=== PATIENT | female | born 1965 | race American Indian/Alaskan Native ===

== ENCOUNTER 2021-02-26 10:48 | Outpatient (CLI) | payer MEDICAID ==
--- NOTE | 2021-02-26 14:08 | Ultrasound Report ---
ULTRASOUND RENAL INDICATION / CLINICAL INFORMATION: CHRONIC KIDNEY DISEASE. COMPARISON: None available. FINDINGS: RIGHT KIDNEY: Length = 8.6 cm. - Echogenicity: Increased. - Cortical Thickness: Normal. - Hydronephrosis: None. - Cyst / Mass: Simple appearing midpole cyst measuring 4.8 x 4.7 x 4.2 cm. - Stones: None seen. LEFT KIDNEY: Length = 8.2 cm. - Echogenicity: Increased. - Cortical Thickness: Normal. - Hydronephrosis: None. - Cyst / Mass: None. - Stones: None seen. URINARY BLADDER: No significant abnormality. FREE FLUID: None. ADDITIONAL FINDINGS: There is a 7.6 x 5.3 x 2.7 cm collection of fluid is visualized posterior to the bladder. IMPRESSION: 1. Findings characteristic of chronic medical renal disease. 2. Right renal cyst. 3. Incidental finding of a 7.6 cm collection of fluid posterior to the bladder in the area of the vag inal canal. Scribed by: Valeria Felix RDMS, RVT Scribed: 02/26/2021 12:37 PM I have reviewed the images, agree with this report, and edited this report as needed. Signer Name: Charles Eason MD Signed: 02/26/2021 2:03 PM Workstation Name: [email or web address]
== END 2021-02-26 10:49 | disposition home or self-care (01) ==
LOC: US 10:48
PROVIDERS: ATTEND Specialist
DX: N28.1 Cyst of kidney, acquired (principal); N18.31 Chronic kidney disease, stage 3a
CPT/HCPCS: 76770

== ENCOUNTER 2022-01-14 19:02 | Emergency (ER) | payer MEDICAID ==
[2022-01-15] MEDS ORDERED: predniSONE 50 MG TAB PO ONE (00:47)
--- NOTE | 2022-01-15 01:15 | Emergency Department Report ---
- General Chief Complaint: Pain General Stated Complaint: COUGH/BODYACHE Source: patient Mode of arrival: Ambulatory Limitations: No Limitations - History of Present Illness Initial Comments: Patient is a 56-year-old -[place] female with a history of gouty arthropathy and hypertension who presents to the ED with complaint of acute onset persistent nasal and sinus congestion, body aches and pains, frontal sinus pressure and mild sore throat for the last 3 days. Patient states that the symptoms have worsened in the last 12 hours. Patient denies dizziness, syncope, chest pain or shortness of breath, fever and chills, change in vision, nausea and vomiting or diarrhea and abdominal pain. MD Complaint: cough, rhinorrhea, nasal congestion, sinus pain -: Gradual, days(s) (3) Severity: moderate Severity scale (0 -10): 5 Quality: sharp, aching Consistency: constant Improves With: nothing Worsens With: nothing Context: sick contacts Associated Symptoms: denies other symptoms, myalgias, headache, rhinorrhea, nasal congestion, sore throat, cough. denies: fever, chills, diaphoresis, chest pain, shortness of breath, abdominal pain, nausea, vomiting, diarrhea, dysuria, rash, confusion, weight loss, epistaxis, other Treatments Prior to Arrival: "cold medicine" - Related Data Previous Rx's Medication Instructions Recorded Last Taken Type Azithromycin [Zithromax Z-YOU] 250 mg PO DAILY #6 tab 01/15/22 Unknown Rx Benzonatate [Tessalon Perles] 100 mg PO Q8HR #30 cap 01/15/22 Unknown Rx Cetirizine HCl [Zyrtec 10mg tab] 10 mg PO DAILY #30 tab 01/15/22 Unknown Rx Ibuprofen [Motrin] 600 mg PO Q8H PRN #30 tablet 01/15/22 Unknown Rx predniSONE [Deltasone] 40 mg PO QDAY #10 tab 01/15/22 Unknown Rx Allergies Allergy/AdvReac Type Severity Reaction Status Date / Time No Known Allergies Allergy Unverified 01/14/22 20:12 ED Review of Systems ROS: Stated complaint: COUGH/BODYACHE Other details as noted in HPI Constitutional: malaise. denies: chills, fever Eyes: denies: eye pain, eye discharge, vision change ENT: throat pain, congestion. denies: ear pain Respiratory: cough. denies: shortness of breath, wheezing Cardiovascular: denies: chest pain, palpitations Endocrine: no symptoms reported Gastrointestinal: denies: abdominal pain, nausea, vomiting, diarrhea Genitourinary: denies: urgency, dysuria, discharge Musculoskeletal: denies: back pain, joint swelling, arthralgia Skin: denies: rash, lesions Neurological: headache (frontal headache). denies: weakness, paresthesias Psychiatric: denies: anxiety, depression Hematological/Lymphatic: denies: easy bleeding, easy bruising ED Past Medical Hx - Past Medical History Previous Medical History?: Yes Hx Hypertension: Yes Additional medical history: GOUT - Surgical History Past Surgical History?: No - Medications Home Medications: Home Medications Medication Instructions Recorded Confirmed Last Taken Type Azithromycin [Zithromax Z-YOU] 250 mg PO DAILY #6 tab 01/15/22 Unknown Rx Benzonatate [Tessalon Perles] 100 mg PO Q8HR #30 cap 01/15/22 Unknown Rx Cetirizine HCl [Zyrtec 10mg tab] 10 mg PO DAILY #30 tab 01/15/22 Unknown Rx Ibuprofen [Motrin] 600 mg PO Q8H PRN #30 tablet 01/15/22 Unknown Rx predniSONE [Deltasone] 40 mg PO QDAY #10 tab 01/15/22 Unknown Rx ED Physical Exam - General Limitations: No Limitations General appearance: alert, in no apparent distress - Head Head exam: Present: atraumatic, normocephalic, normal inspection - Eye Eye exam: Present: normal appearance, PERRL, EOMI Pupils: Present: normal accommodation - ENT ENT exam: Present: normal orophraynx, mucous membranes moist, TM's normal bilaterally, normal external ear exam, other (Grossly congested nasal passages; palpable frontal sinus tenderness) - Neck Neck exam: Present: normal inspection, full ROM. Absent: tenderness - Respiratory Respiratory exam: Present: normal lung sounds bilaterally. Absent: respiratory distress, wheezes, rales, rhonchi, chest wall tenderness, accessory muscle use, decreased breath sounds, prolonged expiratory - Cardiovascular Cardiovascular Exam: Present: regular rate, normal rhythm, normal heart sounds. Absent: systolic murmur, diastolic murmur, rubs, gallop - GI/Abdominal GI/Abdominal exam: Present: soft, normal bowel sounds. Absent: tenderness, guarding, rebound, hyperactive bowel sounds, hypoactive bowel sounds, organomegaly, mass - Extremities Exam Extremities exam: Present: normal inspection, full ROM, normal capillary refill. Absent: tenderness - Back Exam Back exam: Present: normal inspection, full ROM. Absent: tenderness, CVA tenderness (R), CVA tenderness (L), muscle spasm, paraspinal tenderness, vertebral tenderness - Neurological Exam Neurological exam: Present: alert, oriented X3, CN II-XII intact, normal gait, reflexes normal - Psychiatric Psychiatric exam: Present: normal affect, normal mood - Skin Skin exam: Present: warm, dry, intact, normal color. Absent: rash ED Course Vital Signs 01/14/22 01/15/22 20:07 00:45 Temperature 97.8 F Pulse Rate 79 80 Respiratory 18 14 Rate Blood Pressure 159/106 Blood Pressure 158/108 [Left] O2 Sat by Pulse 99 97 Oximetry ED Medical Decision Making - Medical Decision Making This is a 56-year-old -[place] female with a history of gouty arthropathy and hypertension who presents to the ED with complaint of acute onset persistent nasal and sinus congestion, body aches and pains, frontal sinus pressure and mild sore throat for the last 3 days. Patient states that the symptoms have worsened in the last 12 hours. In the ED, patient is alert and oriented x3 and is not in any distress. Patient was treated in the ED with oral prednisone and discharged home on medications and discharged home on medications. Patient was advised to follow-up with her primary care physician in 7 to 10 days for reevaluation or return to the ED immediately if symptoms get worse - Differential Diagnosis URI; sinusitis; bronchitis; pharyngitis; Critical care attestation.: If time is entered above; I have spent that time in minutes in the direct care of this critically ill patient, excluding procedure time. ED Disposition Clinical Impression: Acute upper respiratory infection Acute bronchitis Qualifiers: Bronchitis organism: other organism Qualified Code(s): J20.8 - Acute bronchitis due to other specified organisms Acute frontal sinusitis, unspecified Qualifiers: Recurrence: non-recurrent Qualified Code(s): J01.10 - Acute frontal sinusitis, unspecified Disposition: HOME / SELF CARE / HOMELESS Is pt being admited?: No Does the pt Need Aspirin: No Condition: Stable Instructions: Acute Bronchitis (ED), Sinusitis, Adult, [id number], Upper Respiratory Infection, Adult, [id number], Cough, Adult, [id number], Acute Bronchitis, Adult, [id number] Additional Instructions: Take medication with food, drink plenty of fluids and follow-up with primary care physician in 7 to 10 days for reevaluation. Return to the ED immediately if symptoms get worse. Prescriptions: predniSONE [Deltasone] 40 mg PO QDAY #10 tab Ibuprofen [Motrin] 600 mg PO Q8H PRN #30 tablet PRN Reason: Pain Benzonatate [Tessalon Perles] 100 mg PO Q8HR #30 cap Azithromycin [Zithromax Z-YOU] 250 mg PO DAILY #6 tab Cetirizine HCl [Zyrtec 10mg tab] 10 mg PO DAILY #30 tab Referrals: AMMY SUAREZ MD [Primary Care Provider] - 7-10 days Time of Disposition: 01:16 Print Language: WALLISIAN
[2022-01-15 02:22] VITALS: BP 159/99
== END 2022-01-15 02:22 | disposition home or self-care (01) ==
LOC: ED 19:02
DX: J06.9 Acute upper respiratory infection, unspecified (principal); J20.8 Acute bronchitis due to other specified organisms; J01.10 Acute frontal sinusitis, unspecified; I10 Essential (primary) hypertension
CPT/HCPCS: 99282; J7512